=== PATIENT | male | born 1990 | race Two or more races ===

== ENCOUNTER 2021-04-24 14:32 | Emergency (ER) | payer OTHER, SELFPAY ==
[~2021-04-24] VITALS: Ht 182.9 cm; Wt 131.5 kg
[2021-04-24 15:26] VITALS: BP 114/96
[2021-04-24] MEDS ORDERED: ZINC SULFATE 220mg CAP or TAB PO ONE (15:45)
[2021-04-24] MEDS ORDERED: AZITHROMYCIN 500MG/ 250ML 250 ML IV ONE (15:45)
[2021-04-24] MEDS ORDERED: DexAMETHasone SOD PHOS 10MG/1ML VIAL INJ IV ONE (15:45)
[2021-04-24] MEDS ORDERED: SODIUM CHLORIDE 0.9% 1,000 ML IV ONE ×2 (15:45→20:45)
[2021-04-24] MEDS ORDERED: ASCORBIC ACID 500 MG TAB PO ONE (15:45)
[2021-04-24] MEDS ORDERED: LORazepam 2MG/ML-1ML VIAL IV ONE (16:15)
[2021-04-24 16:19] LABS: Basophils # (auto) 0.1 10 ^3/uL (0-0.2); Basophils % (auto) 1.5 % (0.0-2.0); Eosinophils # (auto) 0 10 ^3/uL (0-0.8); Hematocrit 45.5 % (41.0-53.0); Hemoglobin 16.1 g/dL (13.5-17.5); Lymphocytes # (auto) 0.7 10 ^3/uL (0.4-5.4); Lymphocytes % (auto) 13.7 % (10.0-50.0); Mean Corpuscular Hemoglobin 29.8 pg (28.0-32.0); Mean Corpuscular Hgb Conc. 35.5 g/dL (32.0-36.0); Mean Corpuscular Volume 83.9 fL (80.0-100.0); Monocytes # (auto) 0.3 10 ^3/uL (0-1.3); Monocytes % (auto) 5.9 % (0.0-12.0); Neutrophils # (auto) 4.1 10 ^3/uL (1.6-8.6); Neutrophils % (auto) 78.9 % (37.0-80.0); Nucleated Red Blood Cells % 0.3 %; Red Blood Cells 5.42 10^6/uL (4.5-5.90); Red Cell Distribution Width 13.9 % (11.8-14.3); White Blood Cell 5.1 10^3/uL (4.4-10.8)
[2021-04-24 18:24] LABS: BUN/Creatinine Ratio 13.3; Potassium 3.4 mmol/L (3.5-5.1)
[2021-04-24 18:25] LABS: Albumin 3.1 g/dL (3.4-5.0); Bilirubin, Total 0.5 mg/dL (0.2-1.0); CRP High Sensitivity 6.71 mg/dL (< 0.3); Calcium 8.2 mg/dL (8.5-10.1)
[2021-04-24] MEDS ORDERED: IOHEXOL 350 MG/ML 100ML IJ ONE (19:49)
== END 2021-04-25 01:54 | disposition home or self-care (01) ==
LOC: ER 14:32
DX: U07.1 COVID-19 (principal); J12.82 Pneumonia due to coronavirus disease 2019
CPT/HCPCS: 36415; 71045; 71275; 80053; 82306; 82728; 83036; 83605; 83615; 83735; 84443; 85025; 85379; 86141; 87426; 96365; 96366; 96375; 99285; J0456; J1100; J2060; J7030; Q9967

== ENCOUNTER 2023-06-16 10:04 | Emergency (ER) | payer BC, SELFPAY ==
[~2023-06-16] VITALS: Ht 188 cm; Wt 134.8 kg
[2023-06-16 10:24] VITALS: TEMP 98; O2SAT 97
[2023-06-16] MEDS ORDERED: HYDROcodone-ACET 10/325MG TAB PO ONE (10:45)
[2023-06-16] MEDS ORDERED: KETOROLAC TROMETH 60MG/2ML VIAL IM ONE (10:45)
[2023-06-16] MEDS ORDERED: PRED20TA2 PO (11:01)
[2023-06-16] MEDS ORDERED: IBUP-1456 PO ×2 (11:01)
[2023-06-16] MEDS ORDERED: MORPHINE SULFATE 4 MG/ML SYR/VIAL IV ONE (12:15)
[2023-06-16] MEDS ORDERED: ONDANSETRON HCL 4 MG/2 ML VIAL IV ONE (12:15)
[2023-06-16] MEDS ORDERED: methylPREDNISolone SOD SUCC 125 MG/2 ML VL IV ONE (12:45)
[2023-06-16] MEDS ORDERED: HYDR-4798 PO (13:15)
[2023-06-16 13:21] VITALS: BP 153/98; PULSE 89; RESP 18
== END 2023-06-16 13:22 | disposition home or self-care (01) ==
LOC: ER 10:04
DX: M51.16 Intervertebral disc disorders with radiculopathy, lumbar region (principal); J45.909 Unspecified asthma, uncomplicated
CPT/HCPCS: 72131; 96372; 96374; 96375; 99285; J1885; J2270; J2405; J2930